=== PATIENT | female | born 1995 | race Caucasian/White ===

== ENCOUNTER 2016-09-22 15:43 | Emergency (ER) | payer OTHER ==
[~2016-09-22] VITALS: Ht 165.1 cm; Wt 61.4 kg
[2016-09-22 15:46] VITALS: BP 120/61; TEMP 98.4
[2016-09-22] MEDS ORDERED: DESYREL 50MG50 MG PO (15:50)
[2016-09-22] MEDS ORDERED: EFFEXOR 75M75 MG/TAB PO (15:50)
[2016-09-22] MEDS ORDERED: GIANVI 3 MG-0.01 TAB PO (15:51)
[2016-09-22] MEDS ORDERED: YAZ 28 3 MG-0.01 TAB PO (15:51)
[2016-09-22 17:30] VITALS: PULSE 91
== END 2016-09-22 17:30 | disposition home or self-care (01) ==
LOC: COL.ER 15:43
DX: S09.90XA Unspecified injury of head, initial encounter (principal); S00.83XA Contusion of other part of head, initial encounter; W10.8XXA Fall (on) (from) other stairs and steps, initial encounter; Y92.008 Other place in unspecified non-institutional (private) residence as the place of occurrence of the external cause

== ENCOUNTER 2016-10-26 05:51 | Emergency (ER) | payer OTHER ==
[~2016-10-26] VITALS: Ht 165.1 cm; Wt 59.1 kg
[~2016-10-26 05:51] MED LIST: DESYREL 50MG50 MG PO; EFFEXOR 75M75 MG/TAB PO; GIANVI 3 MG-0.01 TAB PO; YAZ 28 3 MG-0.01 TAB PO
[2016-10-26] MEDS ORDERED: ZITHROMAX500 M2 PO (06:35)
[2016-10-26 06:38] VITALS: BP 110/65; PULSE 94; TEMP 100.4
== END 2016-10-26 06:49 | disposition home or self-care (01) ==
LOC: COL.ER 05:51
DX: J03.00 Acute streptococcal tonsillitis, unspecified (principal); R59.0 Localized enlarged lymph nodes
CPT/HCPCS: J8540

== ENCOUNTER 2016-10-30 04:48 | Emergency (ER) | payer OTHER ==
[~2016-10-30] VITALS: Ht 165.1 cm; Wt 59.1 kg
[~2016-10-30 04:48] MED LIST changes: +ZITHROMAX500 M2 PO
[2016-10-30 04:51] VITALS: BP 106/63; PULSE 83; TEMP 98.5
[2016-10-30] MEDS ORDERED: CLEOCIN HCL300 MG PO (05:12)
== END 2016-10-30 05:42 | disposition home or self-care (01) ==
LOC: COL.ER 04:48
DX: J03.90 Acute tonsillitis, unspecified (principal)
CPT/HCPCS: J1885